=== PATIENT | male | born 1955 | race Caucasian/White ===

== ENCOUNTER 2017-11-15 17:50 | Emergency (ER) | payer BC ==
[~2017-11-15] VITALS: Ht 190.5 cm; Wt 78.0 kg
[2017-11-15 18:13] VITALS: BP 162/106; PULSE 82; RESP 20; TEMP 97.8; O2SAT 98
--- NOTE | 2017-11-15 18:31 | RADRPT ---
EXAM DATE/TIME: 11/15/2017 18:12 [place] COMPARISON: No previous studies available for comparison. INDICATIONS : Chest pain MEDICAL HISTORY : None. SURGICAL HISTORY : None. ENCOUNTER: Initial ACUITY: 2 weeks PAIN SCORE: 0/10 LOCATION: chest FINDINGS: PA and lateral views of the chest demonstrate the lungs to be symmetrically aerated without evidence of mass, infiltrate or effusion. The cardiomediastinal contours are unremarkable. Osseous structure s are intact. CONCLUSION: No acute disease. Marco Antonio Bliss Jr., MD on November 15, 2017 at 18:29 Board Certified Radiologist. This report was verified electronically.
[2017-11-15 18:43] LABS: AUTOMATED NEUTROPHIL # 2.4 TH/MM3 (1.8-7.7); BASOPHIL # 0.1 TH/MM3 (0-0.2); BASOPHIL % 1.2 % (0.0-2.0); EOSINOPHIL # 0.1 TH/MM3 (0-0.4); EOSINOPHIL % 1.7 % (0.0-4.0); HEMATOCRIT 46.4 % (39.0-51.0); HEMOGLOBIN 16.2 GM/DL (13.0-17.0); LYMPH % 56.5 % (9.0-44.0); LYMPHOCYTE # 4.2 TH/MM3 (1.0-4.8); MEAN CELL VOLUME 99.5 FL (80.0-100.0); MEAN CORPUSCULAR HEMOGLOBIN 34.7 PG (27.0-34.0); MEAN CORPUSCULAR HGB CONC 34.9 % (32.0-36.0); MEAN PLATELET VOLUME 10.8 FL (7.0-11.0); MONO % 8.1 % (0.0-8.0); MONOCYTE # 0.6 TH/MM3 (0-0.9); NEUT % 32.5 % (16.0-70.0); PLATELET COUNT 131 TH/MM3 (150-450); RED BLOOD COUNT 4.66 MIL/MM3 (4.50-5.90); RED CELL DISTRIBUTION WIDTH 13.8 % (11.6-17.2); WHITE BLOOD COUNT 7.4 TH/MM3 (4.0-11.0)
[2017-11-15 19:14] LABS: BICARBONATE 25.6 MEQ/L (21.0-32.0); BLOOD UREA NITROGEN 12 MG/DL (7-18); CALCIUM 8.4 MG/DL (8.5-10.1); CHLORIDE 110 MEQ/L (98-107); CREATININE 0.92 MG/DL (0.60-1.30); GLOMERULAR FILTRATION RATE 84 ML/MIN (>89); GLUCOSE,RANDOM 104 MG/DL (74-106); SODIUM (NA) 144 MEQ/L (136-145)
[2017-11-15 19:18] LABS: TROPONIN I LESS THAN 0.02 NG/ML (0.02-0.05)
[2017-11-15] MEDS ORDERED: PENICILLIN V POTASSIUM 500 MG TAB PO ONE (20:45)
[2017-11-15] MEDS ORDERED: IBUPROFEN 600 MG TAB PO ONE (20:45)
[2017-11-15] MEDS ORDERED: PENI500T PO (20:49)
--- NOTE | 2017-11-15 20:50 | PD ---
HPI Chief Complaint: Chest Pain Time Seen by Provider: 20:34 Travel History International Travel<30 days: No Contact w/Intl Traveler<30days: No Traveled to known affect area: No History of Present Illness HPI 62-year-old male here for evaluation of right upper dental pain/infection. Apparently according to the triage note the patient was complaining of chest pain. Patient tells me that he was not having chest pain, states that he has been having this upper dental pain for 2 weeks, and stated in triage that this will eventually lead to chest pain. Dental pain is moderate to severe, constant , worse with palpation. He states that his right upper molar is loose. He states that he pulled out one of his molars on his own about a year ago. No fevers or chills. No respiratory difficulty or difficulty swallowing. PFSH Past Medical History Medical History: Denies Significant Hx Immunizations Current: Yes Tetanus Vaccination: Unknown Influenza Vaccination: No Past Surgical History Other Surgery: Yes (UNK THROAT) Social History Alcohol Use: Yes (DAILY) Tobacco Use: Yes (1/2 PPD) Allergies-Medications (Allergen,Severity, Reaction): Coded Allergies: No Known Allergies (Unverified , 11/15/17) Reported Meds & Prescriptions Reported Meds & Active Scripts Active No Active Prescriptions or Reported Medications Review of Systems Except as stated in HPI: all other systems reviewed are Neg Physical Exam Narrative GENERAL: Well-developed, well-nourished, awake, alert, no apparent distress. SKIN: Focused skin assessment warm/dry. HEAD: Atraumatic. Normocephalic. EYES: Pupils equal and round. No scleral icterus. No injection or drainage. ENT: No nasal bleeding or discharge. Mucous membranes pink and moist. Very poor dentition with several missing teeth with tooth #3 with 90% of the root exposed, loose, no fluctuance or induration. No trismus. No drooling or stridor. NECK: Trachea midline. No JVD. CARDIOVASCULAR: Regular rate and rhythm. RESPIRATORY: No accessory muscle use. Clear to auscultation. Breath sounds equal bilaterally. GASTROINTESTINAL: Abdomen soft, non-tender, nondistended. MUSCULOSKELETAL: No obvious deformities. No clubbing. No cyanosis. No edema. NEUROLOGICAL: Awake and alert. No obvious cranial nerve deficits. Motor grossly within normal limits. Normal speech. PSYCHIATRIC: Appropriate mood and affect; insight and judgment normal. Data Data Last Documented VS Vital Signs Date Time Temp Pulse Resp B/P (MAP) Pulse Ox O2 Delivery O2 Flow Rate FiO2 11/15/17 18:13 97.8 82 20 162/106 (124) 98 Orders Orders Electrocardiogram (11/15/17 17:54) Complete Blood Count With Diff (11/15/17 17:54) Basic Metabolic Panel (Bmp) (11/15/17 17:54) Ckmb (Isoenzyme) Profile (11/15/17 17:54) Troponin I (11/15/17 17:54) Iv Access Insert/Monitor (11/15/17 17:54) Ecg Monitoring (11/15/17 17:54) Oxygen Administration (11/15/17 17:54) Oximetry (11/15/17 17:54) Chest, Pa & Lat (11/15/17 17:54) Penicillin V Potassium (Veetids) (11/15/17 20:45) Ibuprofen (Motrin) (11/15/17 20:45) Labs Laboratory Tests Test 11/15/17 17:58 White Blood Count 7.4 TH/MM3 Red Blood Count 4.66 MIL/MM3 Hemoglobin 16.2 GM/DL Hematocrit 46.4 % Mean Corpuscular Volume 99.5 FL Mean Corpuscular Hemoglobin 34.7 PG Mean Corpuscular Hemoglobin Concent 34.9 % Red Cell Distribution Width 13.8 % Platelet Count 131 TH/MM3 Mean Platelet Volume 10.8 FL Neutrophils (%) (Auto) 32.5 % Lymphocytes (%) (Auto) 56.5 % Monocytes (%) (Auto) 8.1 % Eosinophils (%) (Auto) 1.7 % Basophils (%) (Auto) 1.2 % Neutrophils # (Auto) 2.4 TH/MM3 Lymphocytes # (Auto) 4.2 TH/MM3 Monocytes # (Auto) 0.6 TH/MM3 Eosinophils # (Auto) 0.1 TH/MM3 Basophils # (Auto) 0.1 TH/MM3 CBC Comment DIFF FINAL Differential Comment Blood Urea Nitrogen 12 MG/DL Creatinine 0.92 MG/DL Random Glucose 104 MG/DL Calcium Level 8.4 MG/DL Sodium Level 144 MEQ/L Potassium Level 4.1 MEQ/L Chloride Level 110 MEQ/L Carbon Dioxide Level 25.6 MEQ/L Anion Gap 8 MEQ/L Estimat Glomerular Filtration Rate 84 ML/MIN Total Creatine Kinase 63 U/L Troponin I LESS THAN 0.02 NG/ML MDM Medical Decision Making Medical Screen Exam Complete: Yes Emergency Medical Condition: Yes Differential Diagnosis Dental infection, dental caries, ACS unlikely, periapical abscess Narrative Course Vital signs and initial laboratory workup were performed in triage. Vital signs reviewed. CBC: WBC 7.4, hemoglobin 16.2, hematocrit 46.4, platelets 131. BMP is unremarkable. Cardiac enzymes are negative. Chest x-ray shows no acute disease. The patient's right upper molar, tooth #3, is very loose and 90% of the root is artery exposed. The patient has asked me to remove this tooth. Greater palatine nerve block was performed on this side, and the tooth was removed using gentle traction. There were two nerve roots that were completely intact. See procedure note. No complications. Tolerated well. Patient is not having any chest pain. I do not believe that this is an acute coronary syndrome. This is more likely a visit for dental infection/pain. He will be started on Pen-Vee K and discharged home with instructions to follow-up with a dentist as soon as possible. He was advised on when to return to the emergency department. He verbalizes understanding and agreement with plan. Procedures Procedure Narrative Right greater palatine nerve block: 1 cc of 1% lidocaine was injected in the area of the right greater palatine nerve. The patient experienced immediate relief of pain. Tolerated well. No complications. Removal of tooth #3. After right greater palatine nerve block was performed, tooth #3 was removed using gentle traction. Both of the entire nerve roots were intact. Tolerated well. No complications. Diagnosis Primary Impression: Infected dental caries Referrals: Dentist 3 days Additional Instructions: Follow-up with a dentist this week. Return to the emergency department for worsening symptoms or any other concerns. Scripts Penicillin V Potassium (Penicillin V Potassium) 500 Mg Tab 500 MG PO Q8H for Infection for 10 Days, #30 TAB 0 Refills Prov: Loco Cat MD 11/15/17 Disposition: 01 DISCHARGE HOME Condition: Stable Loco Cat MD November 15, 2017 20:50
--- NOTE | 2017-11-16 16:00 | EKG ---
Date Performed: 11/15/2017 Time Performed: 18:01:22 PTAGE: 62 years EKG: Sinus rhythm NORMAL ECG NO PREVIOUS TRACING DOCTOR: Shane Barclay Interpretating Date/Time 11/16/2017 15:59:00
== END 2017-11-15 21:06 | disposition home or self-care (01) ==
LOC: NEPD 17:50
DX: K02.9 Dental caries, unspecified (principal); F17.200 Nicotine dependence, unspecified, uncomplicated
CPT/HCPCS: 41899; 71046; 80048; 82550; 84484; 85025; 93005

== ENCOUNTER 2017-12-13 14:05 | Emergency (ER) | payer BC ==
[~2017-12-13] VITALS: Ht 188 cm; Wt 78.0 kg
[~2017-12-13 14:05] MED LIST: PENI500T PO
[2017-12-13 14:12] VITALS: BP 147/84; PULSE 86; RESP 20; TEMP 98; O2SAT 99
[2017-12-13 14:17] VITALS: BP 147/84; PULSE 82; RESP 18; TEMP 98; O2SAT 99
[2017-12-13] MEDS ORDERED: IBUP1TAB7 PO (14:21)
[2017-12-13] MEDS ORDERED: SODIUM CHLOR 0.9% 1000 ML INJ 1,000 ML IV ONE (14:45)
--- NOTE | 2017-12-13 15:06 | RADRPT ---
EXAM DATE: 12/13/2017 2:51 PM EDT AGE/SEX: 62 years / Male INDICATIONS: Syncope. CLINICAL DATA: This is the patient's initial encounter. Patient reports that signs and symptoms have been present for 1 day and indicates a pain score of 0/10. MEDICAL/SURGICAL HISTORY: . smokes None. COMPARISON: No prior exams available for comparison. FINDINGS: A single AP view of the chest demonstrates the lungs to be symmetrically aerated without evidence of mass, infiltrate or effusion. The cardiomediastinal contours are unremarkable. Osseous structures a re intact. CONCLUSION: No acute cardiopulmonary findings identified. Electronically signed by: Lazarus Diego MD 12/13/2017 3:04 PM EDT
[2017-12-13 15:20] LABS: AUTOMATED NEUTROPHIL # 5.4 TH/MM3 (1.8-7.7); BASOPHIL # 0.1 TH/MM3 (0-0.2); BASOPHIL % 1.4 % (0.0-2.0); EOSINOPHIL % 0.6 % (0.0-4.0); HEMATOCRIT 44.7 % (39.0-51.0); HEMOGLOBIN 15.4 GM/DL (13.0-17.0); LYMPH % 16.9 % (9.0-44.0); LYMPHOCYTE # 1.2 TH/MM3 (1.0-4.8); MEAN CELL VOLUME 99.5 FL (80.0-100.0); MEAN CORPUSCULAR HEMOGLOBIN 34.3 PG (27.0-34.0); MEAN CORPUSCULAR HGB CONC 34.5 % (32.0-36.0); MEAN PLATELET VOLUME 10.8 FL (7.0-11.0); MONO % 7.5 % (0.0-8.0); MONOCYTE # 0.6 TH/MM3 (0-0.9); NEUT % 73.6 % (16.0-70.0); PLATELET COUNT 113 TH/MM3 (150-450); WHITE BLOOD COUNT 7.4 TH/MM3 (4.0-11.0)
[2017-12-13 15:35] VITALS: BP_SYST 128; BP_SYST 140; BP_DIAS 77; BP_DIAS 85; RESP 18; O2SAT 98
[2017-12-13 15:45] LABS: ALBUMIN 3.3 GM/DL (3.4-5.0); AST (GOT) 190 U/L (15-37); BICARBONATE 26.6 MEQ/L (21.0-32.0); BLOOD UREA NITROGEN 13 MG/DL (7-18); CALCIUM 8.3 MG/DL (8.5-10.1); CHLORIDE 106 MEQ/L (98-107); CREATININE 1.36 MG/DL (0.60-1.30); GLOMERULAR FILTRATION RATE 53 ML/MIN (>89); GLUCOSE,RANDOM 100 MG/DL (74-106); SODIUM (NA) 141 MEQ/L (136-145)
[2017-12-13 15:56] LABS: ALKALINE PHOSPHATASE 71 U/L (45-117); ALT (GPT) 179 U/L (12-78); TOTAL BILIRUBIN ADULT 0.7 MG/DL (0.2-1.0); TOTAL PROTEIN 7.6 GM/DL (6.4-8.2); TROPONIN I LESS THAN 0.02 NG/ML (0.02-0.05)
--- NOTE | 2017-12-13 16:15 | RADRPT ---
EXAM DATE: 12/13/2017 3:51 PM EDT AGE/SEX: 62 years / Male INDICATIONS: Syncope with vomiting. CLINICAL DATA: This is the patient's initial encounter. Patient reports that signs and symptoms have been present for 1 day and indicates a pain score of 0/10. MEDICAL/SURGICAL HISTORY: None. None. RADIATION DOSE: 45.89 CTDI (mGy) COMPARISON: No prior exams available for comparison. TECHNIQUE: CT of the head without contrast. Using automated exposure control and adjustment of the mA and/or kV according to patient size, radiation dose was kept as low as reasonably achievable to ob tain optimal diagnostic quality images. DICOM format image data is available electronically for revi ew and comparison. FINDINGS: Cerebrum: Mild diffuse cerebral atrophy. The ventricles are normal for degree of atrophy. No evidenc e of midline shift, mass lesion, hemorrhage or acute infarction. No extraaxial fluid collections are seen. Posterior Fossa: The cerebellum and brainstem are intact. The 4th ventricle is midline. The cerebe llopontine angle is unremarkable. Extracranial: The visualized portion of the orbits is intact. Skull: The calvaria is intact. No evidence of skull fracture. CONCLUSION: 1. No acute intracranial abnormality. Electronically signed by: Bryce Schaeffer MD 12/13/2017 4:14 PM EDT
--- NOTE | 2017-12-13 17:16 | PD ---
HPI Chief Complaint: Syncope/Near-Syncope Time Seen by Provider: 14:19 Travel History International Travel<30 days: No Contact w/Intl Traveler<30days: No Traveled to known affect area: No History of Present Illness HPI 62-year-old male the presents to the ED for evaluation of syncope. Patient came here by ambulance for evaluation of this. Patient apparently had a syncopal episode today at work. 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 All he remembers is sitting on the chair and also when he woke up with a lot of people around him and apparently he had thrown out. Patient was seen by ambulance and given 1 L of fluid. On his way here all symptoms improved. Patient feels better. Patient denies any chest pain or shortness of breath. No urinary or bowel movement issues. Denies any symptoms like chest pain or shortness of breath before the incident. Denies ever having to like this before. 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 Per patient he has been drinking a lot of coffee today but did not drink much water other than 1 glass of water per patient. He believes is secondary to the heat and the hydration. He has no allergies to medication. No other medical issues. Takes no medications currently. PFSH Past Medical History Immunizations Current: Yes ?: Not Past Surgical History Other Surgery: Yes (UNK THROAT) Social History Alcohol Use: Yes (DAILY) Tobacco Use: Yes (1/2 PPD) Substance Use: No Allergies-Medications (Allergen,Severity, Reaction): Coded Allergies: No Known Allergies (Unverified , 11/15/17) Reported Meds & Prescriptions Reported Meds & Active Scripts Active Reported Ibuprofen 800 Mg Tab 800 Mg PO Q8H PRN Review of Systems Except as stated in HPI: all other systems reviewed are Neg Physical Exam Narrative GENERAL: Well-nourished, well-developed patient in no apparent distress. SKIN: Warm and dry. HEAD: Atraumatic. Normocephalic. EYES: Pupils equal and round reactive to light and accommodation. No scleral icterus. No injection or drainage. ENT: No nasal bleeding or discharge. Mucous membranes pink and moist. TMs are clear with no sign of infection or perforation. No mastoid tenderness. Ear canals are intact bilaterally. No lymphadenopathy. Nostril mucosa is red and moist with clear mucus noted. No sinus tenderness to palpation noted. Tonsils are not enlarged or swollen. No ulvua Deviation. Tongue is midline. NECK: Trachea midline. No JVD. No meningeal signs noted CARDIOVASCULAR: Regular rate and rhythm. RESPIRATORY: No accessory muscle use. Clear to auscultation. Breath sounds equal bilaterally. GASTROINTESTINAL: Abdomen soft, non-tender, nondistended. Hepatic and splenic margins not palpable. MUSCULOSKELETAL: Extremities without clubbing, cyanosis, or edema. No obvious deformities. Full range of motion of the upper and lower extremities bilaterally. 2+ pulses bilaterally. NEUROLOGICAL: Awake and alert. No obvious cranial nerve deficits. Motor grossly within normal limits. Five out of 5 muscle strength in the arms and legs. Normal speech. PSYCHIATRIC: Appropriate mood and affect; insight and judgment normal. Data Data Last Documented VS Vital Signs Date Time Temp Pulse Resp B/P (MAP) Pulse Ox O2 Delivery O2 Flow Rate FiO2 12/13/17 15:35 98 Room Air 12/13/17 15:35 84 18 89 18 12/13/17 14:17 98.0 Orders Orders Electrocardiogram (12/13/17 14:32) Complete Blood Count With Diff (12/13/17 14:32) Comprehensive Metabolic Panel (12/13/17 14:32) Ckmb (Isoenzyme) Profile (12/13/17 14:32) Troponin I (12/13/17 14:32) Lipase (12/13/17 14:32) Magnesium (Mg) (12/13/17 14:32) Thyroid Stimulating Hormone (12/13/17 14:32) Chest, Single Ap (12/13/17 14:32) Ct Brain W/O Iv Contrast(Rout) (12/13/17 14:32) Iv Access Insert/Monitor (12/13/17 14:32) Ecg Monitoring (12/13/17 14:32) Oximetry (12/13/17 14:32) Orthostatic Vital Signs (12/13/17 14:32) Sodium Chlor 0.9% 1000 Ml Inj (Ns 1000 M (12/13/17 14:45) Ed Discharge Order (12/13/17 17:06) Labs Laboratory Tests Test 12/13/17 15:00 White Blood Count 7.4 TH/MM3 Red Blood Count 4.50 MIL/MM3 Hemoglobin 15.4 GM/DL Hematocrit 44.7 % Mean Corpuscular Volume 99.5 FL Mean Corpuscular Hemoglobin 34.3 PG Mean Corpuscular Hemoglobin Concent 34.5 % Red Cell Distribution Width 13.0 % Platelet Count 113 TH/MM3 Mean Platelet Volume 10.8 FL Neutrophils (%) (Auto) 73.6 % Lymphocytes (%) (Auto) 16.9 % Monocytes (%) (Auto) 7.5 % Eosinophils (%) (Auto) 0.6 % Basophils (%) (Auto) 1.4 % Neutrophils # (Auto) 5.4 TH/MM3 Lymphocytes # (Auto) 1.2 TH/MM3 Monocytes # (Auto) 0.6 TH/MM3 Eosinophils # (Auto) 0.0 TH/MM3 Basophils # (Auto) 0.1 TH/MM3 CBC Comment DIFF FINAL Differential Comment Blood Urea Nitrogen 13 MG/DL Creatinine 1.36 MG/DL Random Glucose 100 MG/DL Total Protein 7.6 GM/DL Albumin 3.3 GM/DL Calcium Level 8.3 MG/DL Magnesium Level 2.0 MG/DL Alkaline Phosphatase 71 U/L Aspartate Amino Transf (AST/SGOT) 190 U/L Alanine Aminotransferase (ALT/SGPT) 179 U/L Total Bilirubin 0.7 MG/DL Sodium Level 141 MEQ/L Potassium Level 4.4 MEQ/L Chloride Level 106 MEQ/L Carbon Dioxide Level 26.6 MEQ/L Anion Gap 8 MEQ/L Estimat Glomerular Filtration Rate 53 ML/MIN Total Creatine Kinase 53 U/L Troponin I LESS THAN 0.02 NG/ML Lipase 212 U/L Thyroid Stimulating Hormone 3rd Gen 1.020 uIU/ML MDM Medical Decision Making Medical Screen Exam Complete: Yes Emergency Medical Condition: Yes Medical Record Reviewed: Yes Differential Diagnosis Syncope versus dehydration versus heat exhaustion versus otitis media with otitis externa versus normal exam Narrative Course 62-year-old male that presents to the ED for evaluation of syncope. Patient was properly examined and was found to have signs and symptoms concerning with syncope. Labs and imaging order. Labs and imaging were essentially unremarkable alert and slight elevated creatinine but still within reasonable limits. Possible from the hydration. Vitals and physical exam are reassuring at this time. Patient feels better. Patient able to ambulate with no other symptoms. Case was discussed with my attending Dr. Raines who recommends the patient be admitted for obs as this has never happened to him before. I discussed this in length with the patient and he prefers to go home stating that he believes this is more related to hydration and heat exhaustion. I do agree that this is likely the source of the symptoms but patient was consulted there could be other causes that we have not completely rule out. We do recommend admission for further evaluation. Patient still prefers to go home. Patient understands that without proper testing worsening symptoms can happen including and disability. AMA: The risks of leaving against medical advice without further evaluation treatment were discussed with the patient. These risks include cardiac dysfunction, cardiac dysrhythmia, possible heart attack, possible stroke or . The patient indicated understanding of these risks and appeared to have the capacity to make this decision. At this time patient will be discharged with instructions to drink plenty of fluids. Patient was told to follow with his primary care doctor for further evaluation. Given a prescription for amoxicillin to cover for the possible ear infection of his life. He did complain of some clogging to his left ear and his physical exam did show some inflammation of the left tympanic membrane. She understands reasons to come back. Follow up with PCP. See ED worsening symptoms. Diagnosis Primary Impression: Syncope Qualified Codes: R55 - Syncope and collapse Additional Impressions: Dehydration Heat exhaustion Qualified Codes: T67.5XXA - Heat exhaustion, unspecified, initial encounter Otitis media Qualified Codes: H66.002 - Acute suppurative otitis media without spontaneous rupture of ear drum, left ear Patient Instructions: General Instructions Departure Forms: Tests/Procedures, Work Release Enter return to work date: Dec 14, 2017 Additional Instructions: Drink plenty of fluids. Follow up with PCP. See ED if worsening symptoms. Med/Other Pt SpecificInfo: No Meds Exist/No RX given Disposition: DISCHARGE HOME Condition: Stable Russell Garcia Dec 13, 2017 17:16
[2017-12-13] MEDS ORDERED: AMOX875T PO (17:17)
[2017-12-13 18:08] VITALS: BP 142/72
--- NOTE | 2017-12-14 17:07 | EKG ---
Date Performed: 12/13/2017 Time Performed: 14:11:10 PTAGE: 62 years EKG: Sinus rhythm POSSIBLE LEFT ATRIAL ENLARGEMENT BORDERLINE ECG INTERPRETATION BASED ON A DEFAULT AGE OF 41 YEARS PREVIOUS TRACING : 11/15/2017 18.01 Since the previous tracing, no significant change not ed DOCTOR: Shane Barclay Interpretating Date/Time 12/14/2017 17:03:34
== END 2017-12-13 18:09 | disposition home or self-care (01) ==
LOC: NEPE 14:05
DX: R55 Syncope and collapse (principal); E86.0 Dehydration; T67.5XXA Heat exhaustion, unspecified, initial encounter; H66.002 Acute suppurative otitis media without spontaneous rupture of ear drum, left ear; R94.31 Abnormal electrocardiogram [ECG] [EKG]; F17.210 Nicotine dependence, cigarettes, uncomplicated
CPT/HCPCS: 70450; 71045; 80053; 82550; 83690; 83735; 84443; 84484; 85025; 93005; 96360; 99285; J7030